=== PATIENT | male | born 1975 | race Caucasian/White ===

== ENCOUNTER 2017-01-25 20:02 | Emergency (ER) | payer OTHER ==
[~2017-01-25] VITALS: Ht 172.7 cm; Wt 70.7 kg
[2017-01-25] MEDS ORDERED: PERCOCET 5/31 TABLET PO (21:11)
[2017-01-25] MEDS ORDERED: MOTRIN800 MG PO (21:11)
[2017-01-25 21:31] VITALS: BP 137/74
== END 2017-01-25 21:35 | disposition home or self-care (01) ==
LOC: EXP 20:02 → EME 20:02 → EXP 21:35
DX: S43.101A Unspecified dislocation of right acromioclavicular joint, initial encounter (principal); W18.39XA Other fall on same level, initial encounter; Y93.61 Activity, american tackle football
CPT/HCPCS: 73030; 99281; 99284

== ENCOUNTER 2017-02-01 10:07 | Day surgery (SDC) | payer OTHER ==
[~2017-02-01] VITALS: Ht 172.7 cm; Wt 70.2 kg
[~2017-02-01 10:07] MED LIST: MOTRIN800 MG PO; PERCOCET 5/31 TABLET PO
[2017-02-01 11:17] VITALS: BP 112/62
[2017-02-01 17:30] VITALS: BP 114/64
[2017-02-01 18:25] VITALS: BP 110/66
[2017-02-01 19:10] VITALS: BP 117/70
== END 2017-02-01 19:28 | disposition home or self-care (01) ==
LOC: SDC 10:07
PROC: 0RSJ04Z Reposition Right Shoulder Joint with Internal Fixation Device, Open Approach (ICD-10-PCS; principal; 2017-02-01)
DX: S43.101A Unspecified dislocation of right acromioclavicular joint, initial encounter (principal); W18.39XA Other fall on same level, initial encounter; Y93.61 Activity, american tackle football; Y92.007 Garden or yard of unspecified non-institutional (private) residence as the place of occurrence of the external cause
CPT/HCPCS: 72202; 73020; 76000; J0330; J0690; J1170; J1885; J2175; J2250; J2405; J2710; J2765; J3010